=== PATIENT | female | born 1980 | race Caucasian/White ===

== ENCOUNTER → 2021-01-09 | Outpatient (CLI) | payer OTHER ==
[2021-01-09 10:41] VITALS: BP 131/92
--- NOTE | 2021-01-09 19:29 | Cardiology Stress Test Report ---
Stress Test Report Date of Procedure/Referring: PCP Wali Sanchez Jr, MD Admitting Physician Indications: Chest pain. Baseline Heart Rate: 61 Baseline Blood Pressure: Blood Pressure Systolic: 131 Blood Pressure Diastolic: 92 Baseline EKG: Baseline EKG: Sinus rhythm, normal tracing Summary/Conclusion: PROCEDURE: The patient was exercised for a total of 11 minutes and 30 seconds of the standard Stanton protocol achieving maximum MET level of 12.1. The resting heart rate was 61 bpm and the peak heart rate was 158 bpm, which represents 87% of the maximum predicted heart rate. The resting blood pressure was 131/92 mmHg and the peak blood pressure was 198/98 mmHg. This represents a normal heart rate and blood pressure response to exercise. The test was stopped due to fatigue. There was no exercise-induced chest discomfort. There were isolated premature ventricular complexes in recovery. There were no exercise-induced electrocardiogram changes. The patient exhibited excellent exercise capacity for age. IMPRESSION: 1. Normal heart rate and blood pressure response to exercise. 2. There was no exercise-induced chest discomfort. 3. There were isolated premature ventricular complexes during recovery that ultimately resolved. 4. There were no exercise-induced electrocardiogram changes. 5. The patient exhibited excellent exercise capacity for age at 11 minutes and 30 seconds of the Stanton protocol. 6. This is a negative exercise treadmill test. Certain portions of this document may have been dictated utilizing voice recognition technology. Inherent to this technology, typographical and grammatical errors may exist. As much as I am diligent to identify and correct these mistakes, some errors may remain in the document. WALI SANCHEZ JR, MD Jan 09, 2021 19:29
== END ==
LOC: CARD 10:30
PROVIDERS: ATTEND Internal Medicine Cardiovascular Disease
DX: R07.9 Chest pain, unspecified (principal)
CPT/HCPCS: 93017